=== PATIENT | female | born 1995 ===

== ENCOUNTER 2021-12-10 07:49 | Outpatient (REF) | payer MEDICAID, SELFPAY ==
--- NOTE | ~2021-12-10 | US_ITS ---
EXAMINATION: US DIAGNOSTIC ULTRASOUND BREAST, RIGHT US DIAGNOSTIC ULTRASOUND BREAST, LEFT CLINICAL INFORMATION: 26-year-old with chronic bilateral noncyclical breast pain, 8 months. No discharge. Also palpable fullness left breast noted by patient, walnut size. No prior breast imaging. No known family history breast cancer. COMPARISON: None. TECHNIQUE: Ultrasound of both breasts is performed using grayscale imaging and color Doppler without and with harmonics, targeted to the areas of clinical concern. Patient is able to point to the areas of symptoms at time of imaging. FINDINGS: Right: There is no focal suspicious finding. There is no cystic or solid mass, architectural abnormality, duct ectasia, or edema in the soft tissue planes. Left: There is no focal suspicious finding. There is no cystic or solid mass, architectural abnormality, duct ectasia, or edema in the soft tissue planes. There is no ultrasound correlate for the patient's palpable concern. Results are discussed with the patient at time of visit. US/US breast LT limited IMPRESSION: Normal study. 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 If there is a clinically palpable concern, further evaluation may be considered with surgical consult. Decision to proceed with biopsy should be based on clinical grounds and degree of clinical concern. This patient's information was entered into a reminder system with a target due date for their next breast imaging.
--- NOTE | ~2021-12-10 | US_ITS ---
EXAMINATION: US DIAGNOSTIC ULTRASOUND BREAST, RIGHT US DIAGNOSTIC ULTRASOUND BREAST, LEFT CLINICAL INFORMATION: 26-year-old with chronic bilateral noncyclical breast pain, 8 months. No discharge. Also palpable fullness left breast noted by patient, walnut size. No prior breast imaging. No known family history breast cancer. COMPARISON: None. TECHNIQUE: Ultrasound of both breasts is performed using grayscale imaging and color Doppler without and with harmonics, targeted to the areas of clinical concern. Patient is able to point to the areas of symptoms at time of imaging. FINDINGS: Right: There is no focal suspicious finding. There is no cystic or solid mass, architectural abnormality, duct ectasia, or edema in the soft tissue planes. Left: There is no focal suspicious finding. There is no cystic or solid mass, architectural abnormality, duct ectasia, or edema in the soft tissue planes. There is no ultrasound correlate for the patient's palpable concern. Results are discussed with the patient at time of visit. US/US breast RT limited IMPRESSION: Normal study. 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 If there is a clinically palpable concern, further evaluation may be considered with surgical consult. Decision to proceed with biopsy should be based on clinical grounds and degree of clinical concern. This patient's information was entered into a reminder system with a target due date for their next breast imaging.
== END 2021-12-10 07:50 | disposition home or self-care (01) ==
LOC: HO.MAMMO 07:49
PROVIDERS: Visit Provider Registered Nurse
DX: G89.29 Other chronic pain (principal); N64.4 Mastodynia
CPT/HCPCS: 76642